=== PATIENT | male | born 1995 | race African-American/Black ===

== ENCOUNTER 2020-03-25 14:20 | Emergency (ER) | payer SELFPAY ==
[2020-03-25 14:41] VITALS: BP 129/84; PULSE 107; BMI 23.6
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
[2020-03-25] MEDS ORDERED: DIPHTH,PERTUSS(ACELL),TET 0.5 ML DISP.SYRIN IM ONE ×2 (14:43→16:06)
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
[2020-03-25 15:22] VITALS: TEMP 99.3
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
== END 2020-03-25 16:48 | disposition home or self-care (01) ==
LOC: JER 14:20
PROC: 3E0234Z Introduction of Serum, Toxoid and Vaccine into Muscle, Percutaneous Approach (ICD-10-PCS; principal; 2020-03-25)
DX: S51.832A Puncture wound without foreign body of left forearm, initial encounter (principal); X99.1XXA Assault by knife, initial encounter
CPT/HCPCS: 90715; 99283-25; U0003